=== PATIENT | male | born 1935 | race Caucasian/White ===

== ENCOUNTER 2017-08-22 19:37 | Observation (INO) | payer MEDICARE, BC ==
[2017-08-22 20:12] LABS: Hematocrit 42.1 % (42.0-52.0); Red Blood Cell (RBC) Count 4.51 mill/uL (4.70-6.10); White Blood Cell (WBC) Count 5.3 thou/uL (4.8-10.8)
[2017-08-22 20:21] LABS: Lactic Acid - Sepsis 1.3 mmol/L (0.5-2.2)
--- NOTE | 2017-08-22 20:23 | RAD ---
PORTABLE CHEST: 08/22/17 HISTORY: Syncope. The heart size is enlarged. There are postop sternotomy change and pacemaker. The lungs are clear of any infiltrative process and there is no signs of failure. IMPRESSION: Cardiomegaly with mild chronic lung change. POS: [facility]
[2017-08-22 20:24] LABS: ALT (SGPT) 18 U/L (8-55); AST (SGOT) 31 U/L (5-34); Alkaline Phosphatase 47 U/L (40-150); Anion Gap 13 mmol/L (10-20); BUN (Urea Nitrogen) 30 mg/dL (8.4-25.7); Bilirubin, Total 0.5 mg/dL (0.2-1.2); CK (CPK) 50 U/L (30-200); Calc. Creatinine Clearance 0 mL/min (70-130); Calcium 9.2 mg/dL (7.8-10.44); Carbon Dioxide 22 mmol/L (23-31); Chloride 106 mmol/L (98-107); Estimated GFR-MDRD 42; Globulin 2.6 g/dL (2.4-3.5); Protein, Total 6.2 g/dL (5.8-8.1)
[2017-08-22 20:26] LABS: Band 6 % (5-11); Neutrophil 58 % (42-75); Reactive Lymphocytes 9 % (0-10)
[2017-08-22 20:29] LABS: Troponin I 0.029 ng/mL (< 0.028)
[2017-08-22 20:34] LABS: Bilirubin Negative (Negative); Blood, Urine Negative (Negative); Glucose, Urine (Dipstick) Negative (Negative); Ketone, Urine Negative (Negative); Nitrite Negative (Negative); Protein, Urine (Dipstick) Negative (Neg-Trace)
[2017-08-22 20:36] LABS: Bacteria/HPF None Seen HPF (None Seen); RBC/HPF 0-3 HPF (0-3); Squamous Epithelial 0-3 HPF (0-3); WBC/HPF 0-3 HPF (0-3)
[2017-08-22 20:46] LABS: Hyaline Casts/LPF 7-10 HYALINE CAST LPF (0-3 Hyaline)
[2017-08-22] MEDS ORDERED: Acetaminophen 500 MG TAB ONE (21:01)
[2017-08-22] MEDS ORDERED: Aspirin 325 MG TAB ONE (21:01)
[2017-08-22] MEDS ORDERED: Acetaminophen 325 MG TAB PO PRN (23:09)
[2017-08-22] MEDS ORDERED: Acetaminophen 650 MG Suppository PR PRN (23:09)
[2017-08-22] MEDS ORDERED: Ondansetron ODT 4 MG TAB PO PRN (23:09)
[2017-08-22] MEDS ORDERED: Bisacodyl 5 MG TAB PO PRN (23:09)
[2017-08-22] MEDS ORDERED: Bisacodyl 10 MG SUPP PR PRN (23:09)
[2017-08-22] MEDS ORDERED: Ondansetron HCl/PF 4 MG/2 ML Vial IVP PRN (23:09)
[2017-08-22] MEDS ORDERED: Sodium Chloride 0.9% 1,000 ML IV SCH (23:09)
[2017-08-22] MEDS ORDERED: Docusate 100 MG CAP PO PRN (23:21)
[2017-08-22 23:22] LABS: Troponin I 0.027 ng/mL (< 0.028)
[2017-08-22 23:52] VITALS: BMI 27.6
[2017-08-23 02:33] LABS: Troponin I 0.026 ng/mL (< 0.028)
[2017-08-23 02:35] LABS: ALT (SGPT) 17 U/L (8-55); AST (SGOT) 27 U/L (5-34); Alkaline Phosphatase 43 U/L (40-150); Anion Gap 11 mmol/L (10-20); BUN (Urea Nitrogen) 32 mg/dL (8.4-25.7); Bilirubin, Total 0.4 mg/dL (0.2-1.2); Calc. Creatinine Clearance 44 mL/min (70-130); Calcium 8.9 mg/dL (7.8-10.44); Carbon Dioxide 23 mmol/L (23-31); Chloride 106 mmol/L (98-107); Estimated GFR-MDRD 45; Globulin 2.3 g/dL (2.4-3.5); Phosphorus 4.2 mg/dL (2.3-4.7); Protein, Total 5.7 g/dL (5.8-8.1)
[2017-08-23 02:51] LABS: Band 1 % (5-11); Hematocrit 40.5 % (42.0-52.0); Mean Platelet Volume 7.2 fL (7.4-10.4); Neutrophil 59 % (42-75); Reactive Lymphocytes 3 % (0-10)
--- NOTE | 2017-08-23 06:58 | HP-2 ---
DATE OF ADMISSION: 08/22/2017 LOCATION OF ADMISSION: [facility]. CODE STATUS: FULL. PRIMARY CARE PHYSICIAN: He is from out of town, in [facility]. ATTENDING: Tunde Rudd M.D. RESIDENT: Austyn Bonilla MD HISTORIAN: The patient and his . CHIEF COMPLAINT: Passed out. HISTORY OF PRESENT ILLNESS: This is an 82-year-old male that was at his grandson's weddin g said he was sitting outside and had been outside most of the day, said he was feeling hot. This h appened around 7:00 to 8:00; he said he was feeling hot, went inside indoors where it was a little b it cooler where he sat down and then he said just started to get a weird feeling, could not really d escribe what he was feeling and per his , he got real pale and passed out, was passed out for ab out 5 minutes in which they called EMS and by the time EMS was there, the patient had come to, had n o postictal state, remembers everything the minute he came to. Reports no dizziness, no chest pain, no of breath. When asking him about the feeling he said he never felt this, felt the feeling he dinero d before he passed out that he did not feel like any of his heart attacks and he does have a very ex tensive heart history with multiple heart attacks. Per his , she said that his eyes kind of mad e movements that he had. She said he had had a history of previous stroke after a heart catheteriza tion and during then he just had some eye problems and said that is kind of what she thought she saw . More than that, when EMS got there, his blood pressure was 80/30; when he got to the ER, his bloo d pressure to come up to 80/60. Denies any nausea, vomiting, diarrhea, constipation. Denies any lo ss of urine or shaking or any seizure-like symptoms. REVIEW OF SYSTEMS: All review of systems not listed in the HPI are otherwise negative at this time. PAST MEDICAL HISTORY: Hypertension. He has had coronary artery disease with 6 to 7 heart caths, th e last one being in 2006, reports he has 18 to 20 stents. He has had a CVA. He has had in the loca tion of reynaldo and just had some of the eye movement. PAST SURGICAL HISTORY: He has had a 5-vessel bypass in 1989 and a tonsillectomy. ALLERGIES: He has an allergy to LEVAQUIN or CIPRO, not quite sure when he got some red dots on his skin. MEDICATIONS: Bystolic 5 mg in the morning, clopidogrel 75 mg, famotidine 20 mg, fenofibrate 160 mg, KCl 20 mEq, Protonix 40 mg, tamsulosin 0.4 mg, sucralfate 1 gram, Ranexa 1000 mg b.i.d., torsemide 20 mg b.i.d., Xyzal 5 mg, Lomotil p.r.n., Colcrys 0.6 mg, buspirone 10 mg 2 times a day, Benadryl 25 mg, Benicar 20 mg, and Zetia 10 mg. FAMILY HISTORY: His mom around 90 of dementia and old age. His dad was also 90 of a hear t attack. 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 Alcohol, drinks occasionally. Drug use, no illicit drug use. He is . was with him at bedside. PHYSICAL EXAMINATION: VITAL SIGNS: Blood pressure is 109/60, pulse was 70, respirations 16, temperature is 99.7, pulse ox was 100% on 2 liters. Weight was 82.6 kilograms. GENERAL: He is alert and oriented x3. Well-developed, obese, appropriately interactive. EYES: Conjunctivae within normal limits. ENT: TMs pearly edwards without bulging or erythema. Oropharynx within normal limits. NECK: Supple, no lymphadenopathy, no thyromegaly, no bruits. CARDIOVASCULAR: Regular rate and rhythm. No murmurs, no gallops. Heart sounds were hard to auscul mathis seems somewhat distant. Radial pulses, pedal pulses palpated bilaterally, respirations normal breathing effort. No retractions. RESPIRATORY: Lungs clear to auscultation bilaterally. SKIN: Warm and dry. No lesions noted. No rashes noted. ABDOMEN: Soft, is nontender to palpation. Bowel sounds in all 4 quadrants. There is distention no ernestine of his belly. MUSCULOSKELETAL: Structure within normal limits, tone within normal limits. Muscle strength 5/5. Full range of motion in all extremities bilaterally. NEUROLOGIC: No focal neuro deficits. Sensation within normal limits. DTRs 4/4. Cranial nerves II I, IV, and or somewhat. He does not track during the test, he does not track down, and his eyes do not move anywhere when moving finger towards the nose. All other cranial nerves were gross ly intact. GCS is 15. PSYCHIATRIC: Appropriate. LABORATORY DATA: White blood cell count 4.3, hemoglobin 14, hematocrit 42.1, platelets 231. CK 50, CK-MB 2.5, troponin 0.029. BNP 437. Sodium 137, potassium 4.1, chloride 106, CO2 of 22, BUN of 30 , creatinine 1.58, glucose 123, calcium 9.2, total protein 6.7, albumin 3.6, alkaline phosphatase 47 , AST 31, ALT 18, total bilirubin 0.5, lactic acid 1.3. UA was only positive for small leukocyte es terase and 05/11 hyalin casts, everything else is negative. Chest x-ray showed cardiomegaly with mil d chronic lung change. ASSESSMENT AND PLAN: 1. Syncopal episode likely due to hypotension and dehydration. We will do q.2 hours blood pressure checks. We will check his orthostatics. We will start normal saline at a rate of 100 mL per hour. We will admit him to telemetry observation. We will trend his troponins and recheck a CMP and CBC in the morning. 2. Hypotension. We will hold his blood pressure medications and plan as a problem above. 3. Acute kidney injury. We will check morning CMP. We will put him on fluids, normal saline at a rate of 100 and will hold his home torsemide. 4. History of hypertension. We will monitor vitals and hold his blood pressure medications. 5. History of coronary artery disease. He is admitted to tele observation. 6. History of stroke. We will observe. Diet - we will put him on a cardiac heart . 7. Deep venous thrombosis. Sequential compression devices and gastrointestinal prophylaxis. We wi ll restart his home medications.
--- NOTE | 2017-08-23 07:07 | PDOC.FM ---
- Subjective Subjective: Patient doing well this AM. No significant overnight events. Patient endorses that he took his water pill yesterday, didn't drink any water all day, and then went and stood in the 90 degree heat for a wedding. He started to feel dizzy, so he went inside, and the next thing he knew he was surrounded by people who said he had passed out. He states that he follows closely with a multimedia designer and he plans to see them tomorrow. - Objective MAR Reviewed: Yes Vital Signs & Weight: Vital Signs (12 hours) Temp Pulse Resp BP BP Pulse Ox 08/23/17 05:29 134/69 08/23/17 04:19 69 18 131/66 08/23/17 03:08 119/61 08/23/17 01:32 119/63 08/22/17 23:12 97.6 F 81 16 08/22/17 23:09 97.6 F 81 16 141/71 H 98 Weight Weight 82.236 kg I&O: 08/22/17 08/23/17 08/24/17 06:59 06:59 06:59 Intake Total 700 Balance 700 Result Diagrams: 08/23/17 01:59 08/23/17 01:59 Radiology Reviewed by me: Yes <Anjana Wofl - Last Filed: 08/23/17 07:54> - Objective Vital Signs & Weight: Vital Signs (12 hours) Temp Pulse Resp BP BP BP BP 08/23/17 07:42 98.1 F 71 16 126/61 128/63 08/23/17 07:40 98.2 F 69 18 08/23/17 05:29 134/69 08/23/17 04:19 69 18 131/66 08/23/17 03:08 119/61 08/23/17 01:32 119/63 08/22/17 23:12 97.6 F 81 16 08/22/17 23:09 97.6 F 81 16 141/71 H BP Pulse Ox 08/23/17 07:42 141/74 H 96 08/23/17 07:40 08/23/17 05:29 08/23/17 04:19 08/23/17 03:08 08/23/17 01:32 08/22/17 23:12 08/22/17 23:09 98 Weight Weight 181 lb 4.8 oz I&O: 08/22/17 08/23/17 08/24/17 06:59 06:59 06:59 Intake Total 700 1187 Balance 700 1187 Result Diagrams: 08/23/17 01:59 08/23/17 01:59 <Tunde Rudd - Last Filed: 08/23/17 10:00> Phys Exam - Physical Examination Constitutional: NAD HEENT: moist MMs, sclera anicteric Neck: supple, full ROM Wheezing diffusely throughout Cardiovascular: RRR 3/6 systolic murmur Gastrointestinal: soft, non-tender, positive bowel sounds Distended (normal for patient) Musculoskeletal: no edema, pulses present Neurological: non-focal, moves all 4 limbs Psychiatric: normal affect, A&O x 3 Skin: no rash, normal turgor, cap refill <2 seconds <Anjana Wolf - Last Filed: 08/23/17 07:54> Dx/Plan (1) Syncope Code(s): R55 - SYNCOPE AND COLLAPSE Status: Acute Qualifiers: Syncope type: heat syncope Encounter type: initial encounter Qualified Code(s): T67.1XXA - Heat syncope, initial encounter (2) CAD (coronary artery disease) Code(s): I25.10 - ATHSCL HEART DISEASE OF [place] CORONARY ARTERY W/O ANG PCTRS Status: Acute (3) S/P CABG (coronary artery bypass graft) Code(s): Z95.1 - PRESENCE OF AORTOCORONARY BYPASS GRAFT Status: Acute (4) CVA (cerebral vascular accident) Code(s): I63.9 - CEREBRAL INFARCTION, UNSPECIFIED Status: Acute - Plan Plan: 82 year old male with history of CAD, CABG, CVA and HTN that presents with syncopal episode after standing outside in heat for a weddin. Syncopal episode, initial encounter: likely 2/2 being overheated and dehydrated. Patient reported that he did not drink much water yesterday. BP on arrival was 80/30. BUN 32/Cr 1.49. Fluid resuscitated with NS @ 100 ml/hr. BP this AM 134/69. Patient follows closely with cardiology in [place]. Symptoms improved after rehydration. CK wnl. TSH wnl. EKG normal. 7-10 hyaline casts. Advised patient to get up and walk around with assistance of nurse to evaluate lightheadedness this AM. Consider discharge home if able to ambulate without difficulty. 2. CAD s/p 6-7 caths (18-20 stents): Last stent in 2006. Follows closely with multimedia designer in [place]. 3. s/p CABG in 1989: Follows closely with multimedia designer in [place]. 4. CVA with residual eye deficits 5. CHF: Continue HF medications. CXR shows cardiomegaly with chronic lung changes. 6. HTN: Continue BP medications when BP stable 7. Chronic lung disease, unspecified: Patient on inhaler at home; uncertain of which one. States he does not have COPD or emphysema. Wheezing on exam. CXR shows cardiomegaly with chronic lung changes. <Anjana Wolf - Last Filed: 08/23/17 07:54> Attending Addendum - Attending Addendum I personally evaluated the patient and discussed the management with Dr. Wolf I agree with the History, Examination, Assessment and Plan documented above with any addition or exceptions noted below. Mr. Guzman did well overnight on IV fluids and is back to baseline. We will send him home today to followup with his primary in [place]. <Tunde Rudd - Last Filed: 08/23/17 10:00>
[2017-08-23 08:02] VITALS: BP 141/74; TEMP 98.1
[2017-08-23] MEDS ORDERED: Docusate 100 MG CAP PO SCH (09:00)
--- NOTE | 2017-08-24 14:05 | DIS-2 ---
DATE OF ADMISSION: 08/22/2017 DATE OF DISCHARGE: 08/23/2017 RESIDENT: Dr. Anjana Wolf. ATTENDING PHYSICIAN: Tunde Rudd MD CONSULTATIONS: None. PROCEDURE: Chest x-ray shows cardiomegaly with mild chronic lung change. DISCHARGE MEDICATIONS: 1. Olmesartan medoxomil (Benicar 20 mg oral daily). 2. Torsemide 20 mg oral twice daily. 3. Levocetirizine dihydrochloride 5 mg oral at bedtime. 4. Diphenhydramine HCl 25 mg oral at bedtime. 5. Diphenoxylate HCl/Atropine 2 tablets oral every 6 hours as needed. 6. Potassium chloride 20 mEq oral daily. 7. Nebivolol 10 mg oral at bedtime. 8. Tamsulosin 0.4 mg oral daily. 9. Famotidine 20 mg oral at bedtime. 10. Clopidogrel bisulfate 75 mg oral daily. 11. Sucralfate 1 gram oral twice daily. 12. Pantoprazole 40 mg oral daily. 13. Fenofibric acid 135 mg oral at bedtime. 14. Colchicine 0.6 mg oral daily. 15. Buspirone 10 mg oral twice daily. 16. Ranolazine 1000 mg oral twice daily. 17. Ezetimibe 10 mg oral at bedtime. DISCONTINUED MEDICATIONS: None. HISTORY OF PRESENT ILLNESS AND HOSPITAL COURSE: This is an 82-year-old male that was at h is grandson's wedding outside in the heat when he suddenly started to feel hot. He then went inside to cool down and the next thing he knew he got really pale and woke up with several people surround ing him. EMS was called. By the time EMS arrived, the patient was back to being himself. He remem bers the moment he woke up. He had no postictal state. Patient reports no dizziness, chest pain or shortness of breath. Of note, the patient has had several heart attacks and has a very extensive c ardiovascular history. He states that this current episode did not feel anything like his previous heart attacks or strokes. The patient did report that he took his Lasix earlier in the day to preve nt having to urinate during the wedding ceremony and he did not drink any water during the course of the day. When EMS arrived, his blood pressure was 80/30. When he got to the ER, his blood pressur e had come up to 80/60. He denied any nausea, vomiting, diarrhea or constipation. He denied any lo ss of urine or seizure-like symptoms. After fluid resuscitation, the patient's blood pressure came back up to normal. The patient remained stable throughout the course of his hospital stay. He did have an acute kidney injury likely secondary to dehydration, which was also the cause of his syncope. As stated prevterriu dianne, the patient took his Lasix that morning, did not consume any water during the day. He then israel t out in the middle of the afternoon in the extreme [place] heat where he became faint and subsequentl y had a syncopal episode. After adequate fluid resuscitation, the patient felt much better and his blood pressure normalized. Due to patient's extensive coronary history, he was monitored. It was n oted that patient had very close follow up with his Cardiology in his hometown. He stated that he w as going to make an appointment for the very next day to be evaluated. Troponins were trended. Ini tial troponin was in an indeterminate range, but it did trend down. CK was noted to be normal at 50 , BUN was 32, creatinine 1.49. Orthostatics were checked and were negative. Patient voiced his angelina иван to go home as patient was stable and not requiring further fluid resuscitation. It was decided that the patient could be appropriately discharged home with close Cardiology followup to evaluate h is medications, which may also have been a cause of his low blood pressure and syncope. At this clark e, we did not change any of the medications per patient request. However, it was advised that he go through these medications with his towing pilot. DISCHARGE INSTRUCTIONS: 1. Location: Home. 2. Activity: As tolerated. 3. Diet: Heart healthy diet, low sodium diet. 4. Followup: The patient is to follow up with primary care physician within the next 7 days, advis ed patient close Cardiology followup. He states that he is going to be seen by his towing pilot the day after discharge from the hospital. The patient was in understanding the necessity for followup and agreeable.
== END 2017-08-23 10:04 | disposition home or self-care (01) ==
LOC: ERS 19:37 → 2SW 21:00
PROVIDERS: ADMIT Internal Medicine; ATTEND Internal Medicine
DX: R55 Syncope and collapse (principal); I10 Essential (primary) hypertension; I25.10 Atherosclerotic heart disease of native coronary artery without angina pectoris; Z88.1 Allergy status to other antibiotic agents; Z79.899 Other long term (current) drug therapy; Z90.89 Acquired absence of other organs; Z95.5 Presence of coronary angioplasty implant and graft; Z95.1 Presence of aortocoronary bypass graft; Z98.890 Other specified postprocedural states; Z87.891 Personal history of nicotine dependence; Z81.8 Family history of other mental and behavioral disorders; Z82.49 Family history of ischemic heart disease and other diseases of the circulatory system
CPT/HCPCS: 71010; 80053; 82550; 82553; 82962; 83605; 83735; 83880; 84100; 84484 ×3; 85025; 87040; 93005; 96360; 96361; 99285; G0378; 36415; 36416; 81003; 81015; 84443